=== PATIENT | male | born 1960 | race Caucasian/White ===

== ENCOUNTER 2017-08-09 16:05 | Inpatient (IN) | payer SELFPAY ==
[~2017-08-09] VITALS: Ht 177.8 cm; Wt 85.8 kg
[2017-08-09 16:12] VITALS: BP 205/101
--- NOTE | 2017-08-09 16:23 | NUR ---
PT AMBULATED TO BED 3
--- NOTE | 2017-08-09 16:25 | NUR ---
56/M BIB FAMILY C/O EPIGASTRIC PAIN X 3-4 DAYS WITH DIARRHEA. PT PALE, SLIGHTLY DIAPHORETIC. VERBALIZES HE HAD CHEST PAIN EARLIER TODAY WHILE AT WORK. PT DENIES ANY DRUG USE. [place] PUPILS-DROWSY. PER " HE HASNT BEEN ACTING RIGHT TODAY. PT SPEAKING FULL CLEAR SENTENCES, AAOX4.
[2017-08-09] MEDS ORDERED: NACL 0.9% 1,000 ML IV ONE ×2 (16:30→17:50)
[2017-08-09] MEDS ORDERED: NITROGLYCERIN 0.4 MG TAB SL ONE (16:30)
[2017-08-09] MEDS ORDERED: ASPIRIN 325 MG TAB PO ONE (16:30)
[2017-08-09 16:55] LABS: HEMATOCRIT 46.3 % (36-52); HEMOGLOBIN 15.4 g/dL (12.0-18.0); MEAN CORPUSCULAR HEMOGLOBIN 30 pg (27-31); MEAN CORPUSCULAR HGB CONC 33 g/dL (33-37); MEAN CORPUSCULAR VOLUME 91 fL (80-94); PLATELET COUNT (AUTO) 341 K/uL (140-450); RED BLOOD CELL COUNT(AUTO) 5.08 MIL/uL (4.20-6.10); RED CELL DISTRIBUTION WIDTH 13.2 % (11.6-13.7); WHITE BLOOD COUNT (AUTO) 20.4 K/uL (4.8-10.8)
[2017-08-09 17:25] LABS: LYMPHOCYTES % (MANUAL) 12 % (20-46); MONOCYTES % (MANUAL) 4 % (5-12)
[2017-08-09 17:34] LABS: ANION GAP 15.9 (8-16); CARBON DIOXIDE 26.7 mmol/L (21-32); CREATININE 1.1 mg/dL (0.7-1.3); POTASSIUM 3.6 mmol/L (3.5-5.1)
[2017-08-09 17:41] LABS: ALBUMIN 4.3 g/dL (3.4-5.0); TOTAL BILIRUBIN 0.4 mg/dL (0.0-1.0)
[2017-08-09] MEDS ORDERED: LEVOFLOXACIN 750 MG/D5W PREMIX 150 ML IV ONE (17:50)
[2017-08-09 17:54] LABS: APPEARANCE,URINE CLEAR (CLEAR); BILIRUBIN,URINE NEGATIVE (NEGATIVE); BLOOD, URINE TRACE-I (NEGATIVE); COLOR,URINE YELLOW (YELLOW); LEUKOCYTE ESTERASE ,URINE NEGATIVE (NEGATIVE); NITRITE, URINE NEGATIVE (NEGATIVE); PH,URINE 5.5 (5.0-9.0); UGLUCOSE NEGATIVE (NEGATIVE)
[2017-08-09 18:01] LABS: BARBITURATE, URINE NEG. ng/ml (NEG <=200); BENZODIAZEPINE, URINE NEG. ng/mL (NEG <=200); CANNABINOID, URINE NEG. ng/mL (NEG <=50); COCAINE, URINE NEG. ng/mL (NEG <=300); OPIATE, URINE POS. ng/mL (NEG <=2000); PHENCYCLIDINE SCREEN,URINE NEG. ng/mL (NEG <=25)
[2017-08-09 18:08] LABS: RBC,URINE 3-10 (FEW) /HPF (0-5); WBC,URINE 0-5 (RARE) /HPF (0-5)
--- NOTE | 2017-08-09 18:51 | NUR ---
Patient appears to be resting comfortably in bed. BP 150/90,Respirations even and unlabored.WILL CONTINUE TO MONITOR.
--- NOTE | 2017-08-09 19:14 | NUR ---
Pt report given to NASIR BAXTER. Transfer of care at this time.
--- NOTE | 2017-08-09 19:27 | NUR ---
PT RESTING IN BED, ON MONITOR, VSS. AWATING FOR ROOM TO BE [facility]NFER. [facility]
[2017-08-09] MEDS ORDERED: ACETAMINOPHEN 325 MG TAB PO PRN (19:40)
[2017-08-09] MEDS ORDERED: PROCHLORPERAZINE 10 MG/2 ML VIAL IVP PRN (19:40)
[2017-08-09] MEDS ORDERED: MORPHINE SULFATE 2 MG/ML SYR IVP PRN (19:40)
[2017-08-09] MEDS ORDERED: KETOROLAC 30 MG/ML VIAL IVP PRN (19:40)
--- NOTE | 2017-08-09 20:30 | NUR ---
PT ARRIVED VIA GURNEY. RECEIVED REPORT FROM DIRECTOR COMMUNICATIONS, PT IS A/OX4, ON ROOM AIR. 20G IV TO LEFT AC, AND 20G IV TO RIGHT AC. PT AMBULATES WITH STEADY GAIT, SKIN IS INTACT. UPDATED BOARD. OBTAINED MRSA NARES SWAB AND SENT TO LAB. DISCUSSED PLAN OF CARE WITH PT, PT VERBALIZED UNDERSTANDING. VITAL SIGNS WITHIN NORMAL LIMITS. PT IN STABLE CONDITION, NO SIGNS OF DISTRESS NOTED. BED IN LOWEST POSITION, CALL LIGHT WITHIN REACH. WILL CONTINUE TO MONITOR.
--- NOTE | 2017-08-09 20:30 | NUR ---
Patient will be admitted to care of DR TAYLOR. Admited to TELEMETRY, ROOM 111A. Belongings list completed. Report to NASIR PELLETIER AT BEDSIDE.
[2017-08-09 20:50] LABS: CHOL/HDL RATIO 5.2 (1-4.5); MAGNESIUM 2.1 mg/dL (1.8-2.4); PHOSPHORUS 4.7 mg/dL (2.5-4.9); THYROID STIMULATING HORMONE 0.72 uIU/mL (0.34-3.74)
[2017-08-09] MEDS ORDERED: DOCUSATE SODIUM 100 MG GELCAP PO PRN (21:00)
[2017-08-09] MEDS ORDERED: ECOTRIN 81 MG TABEC PO ONE (21:40)
[2017-08-09] MEDS ORDERED: INSULIN LISPRO SLIDING SCALE 100 UNITS/ML VIAL SUBQ PRN (21:50)
[2017-08-09] MEDS ORDERED: DEXTROSE 50% 50 ML SYR IVP PRN (21:50)
[2017-08-09] MEDS: metroNIDAZOLE 500 MG/NS PREMIX 100 ML IV SCH (22:20)
[2017-08-09] MEDS: NACL 0.9% 1,000 ML IV SCH (22:20)
--- NOTE | 2017-08-09 22:20 | NUR ---
ADMINISTERED SCHEDULED MEDICATIONS, PT TOLERATED WELL. PT IN STABLE CONDITION, NO SIGNS OF DISTRESS NOTED. BED IN LOWEST POSITION, CALL LIGHT WITHIN REACH. WILL CONTINUE TO MONITOR.
[2017-08-09 22:30] VITALS: BP 147/90
[2017-08-09] MEDS: HYDROcodone/APAP 7.5/325 MG 1 TAB PO PRN (23:28)
--- NOTE | 2017-08-09 23:30 | NUR ---
PT C/O 11/06 ABDOMINAL PAIN, MEDICATED ACCORDING TO MD ORDER WITH NORCO, PT TOLERATED WELL. WILL REASSESS FOR EFFECTIVENESS OF PAIN MEDICATION. PT IN STABLE CONDITION, NO SIGNS OF DISTRESS NOTED. BED IN LOWEST POSITION, CALL LIGHT WITHIN REACH. WILL CONTINUE TO MONITOR.
--- NOTE | 2017-08-10 | NUR ---
VITAL SIGNS WITHIN NORMAL LIMITS. PT IN STABLE CONDITION, NO SIGNS OF DISTRESS NOTED. BED IN LOWEST POSITION, CALL LIGHT WITHIN REACH. WILL CONTINUE TO MONITOR.
[2017-08-10 01:10] VITALS: BP 106/55
[2017-08-10] MEDS ORDERED: INFLUENZA VIRUS VACCINE QUAD 0.5 ML SYR IMVAC PRN (03:55)
[2017-08-10] MEDS: NACL 0.9% 1,000 ML IV SCH ×2 (03:56→13:01)
[2017-08-10 04:00] VITALS: BP 111/57
--- NOTE | 2017-08-10 04:00 | NUR ---
VITAL SIGNS WITHIN NORMAL LIMITS. PT IN STABLE CONDITION, NO SIGNS OF DISTRESS NOTED. BED IN LOWEST POSITION, CALL LIGHT WITHIN REACH. WILL CONTINUE TO MONITOR.
[2017-08-10] MEDS: metroNIDAZOLE 500 MG/NS PREMIX 100 ML IV SCH ×3 (05:18→20:44)
--- NOTE | 2017-08-10 07:20 | NUR ---
ASSUMED CONTINUITY OF CARE. NO SIGNS AND SYMPTOMS OF ACUTE DISTRESS NOTED. INITIAL ASSESSMENT DONE. KEEP COMFORTABLE ON BED. EXPLAINED DIAGNOSIS, PLAN OF CARE, PAIN MANAGEMENT TEACHING, USE OF CALL LIGHT/BED/TV/BATHROOM. VERBALIZED UNDERSTANDING. CALL LIGHT WITHIN REACH.
--- NOTE | 2017-08-10 07:24 | NUR ---
ENDORSED PT IN STABLE CONDITION TO DAY SHIFT NURSE FOR CONTINUITY OF CARE.
[2017-08-10] MEDS ORDERED: BLOOD GLUCOSE MONITORING 1 DEV DEV FS SCH (07:30)
[2017-08-10 08:00] VITALS: BP 130/65
[2017-08-10] MEDS ORDERED: metFORMIN 500 MG TAB PO SCH (08:00)
--- NOTE | 2017-08-10 08:00 | NUR ---
Patient's Plan of Care was discussed and reviewed with ROUTING EQUIPMENT TENDER: GRETTA GONGORA LVN
[2017-08-10] MEDS: LACTOBACILLUS RHAMNOSUS GG 1 EACH CAP PO SCH (08:29)
[2017-08-10] MEDS: ATORVASTATIN 20 MG TAB PO SCH (08:29)
[2017-08-10] MEDS: LISINOPRIL 5 MG TAB PO SCH (08:29)
[2017-08-10] MEDS: METOPROLOL 25 MG TAB PO SCH (08:30)
[2017-08-10] MEDS ORDERED: ASPIRIN 81 MG TAB.CHEW PO SCH (09:00)
[2017-08-10] MEDS: HYDROcodone/APAP 7.5/325 MG 1 TAB PO PRN ×3 (09:15→19:51)
--- NOTE | 2017-08-10 09:25 | NUR ---
COLLECTED STOOL SPECIMEN AND SEND TO LAB.
[2017-08-10 09:42] LABS: BASOPHILS # (AUTO) 0.2 K/uL (0.00-0.22); BASOPHILS % (AUTO) 1.9 % (0.0-2.0); EOSINOPHILS # (AUTO) 0.1 K/uL (0-0.4); EOSINOPHILS % (AUTO) 0.8 % (0.0-4.0); HEMATOCRIT 40.1 % (36-52); HEMOGLOBIN 13.3 g/dL (12.0-18.0); LYMPHOCYTES # (AUTO) 1.1 K/uL (2.0-11.5); LYMPHOCYTES % (AUTO) 11.7 % (20.5-51.1); MEAN CORPUSCULAR HEMOGLOBIN 31 pg (27-31); MEAN CORPUSCULAR HGB CONC 33 g/dL (33-37); MEAN CORPUSCULAR VOLUME 92 fL (80-94); MONOCYTES % (AUTO) 10.6 % (1.7-9.3); NEUTROPHILS # (AUTO) 6.9 K/uL (1.8-7.7); PLATELET COUNT (AUTO) 248 K/uL (140-450); RED BLOOD CELL COUNT(AUTO) 4.36 MIL/uL (4.20-6.10); WHITE BLOOD COUNT (AUTO) 9.3 K/uL (4.8-10.8)
[2017-08-10 09:49] LABS: ANION GAP 11.4 (8-16); CARBON DIOXIDE 28.3 mmol/L (21-32); CREATININE 0.7 mg/dL (0.7-1.3); POTASSIUM 3.7 mmol/L (3.5-5.1)
--- NOTE | 2017-08-10 11:20 | NUR ---
DR. ONOFRE CAME, REVIEWED PT. CHART AND SPOKE TO PT. AT BEDSIDE.
[2017-08-10 12:00] VITALS: BP 106/60
[2017-08-10] MEDS ORDERED: LACTULOSE 20 GM/30 ML UDC PO SCH (12:11)
[2017-08-10] MEDS: SENNA 8.6 MG TAB PO SCH ×2 (13:10→16:30)
--- NOTE | 2017-08-10 15:20 | NUR ---
WATCHING TV AT THIS TIME. NO DISCOMFORT NOTED. CALL LIGHT WITHIN REACH.
--- NOTE | 2017-08-10 15:26 | NUR ---
PATIENT HAS BEEN SCREENED AND CATEGORIZED HIGH NUTRITION RISK. PATIENT WILL BE SEEN WITHIN 1-2 DAYS OF ADMISSION. 08/10/17 - 08/11/[address]
[2017-08-10 16:00] VITALS: BP 123/67
[2017-08-10] MEDS: METOCLOPRAMIDE 10 MG TAB PO SCH (16:29)
[2017-08-10] MEDS ORDERED: LEVOFLOXACIN 750 MG/D5W PREMIX 150 ML IV SCH (18:00)
--- NOTE | 2017-08-10 19:10 | NUR ---
BEDSIDE REPORT GIVEN TO IGOR WHIPPLE -NASIR. IVF INFUSING WELL. IN STABLE CONDITION.
--- NOTE | 2017-08-10 19:15 | NUR ---
RECEIVED PT AWAKE ON BED, COMPLAINING OF ABDOMINAL PAIN, WILL MEDICATE PRN, VITAL SIGNS STABLE, SB ON TELE, DENIES CHEST PAIN, NO SOB NOTED, TOLERATING CLEAR LIQUID DIET, INSTRUCTED NPO AFTER MIDNIGHT FOR EGD TOMORROW, VERBALIZED UNDERSTANDING, SAFETY MEASURES IN PLACE, CALL LIGHT WITHIN REACH.
[2017-08-10 20:00] VITALS: BP 128/71
[2017-08-10] MEDS: PANTOPRAZOLE 40 MG INJ VIAL IVP SCH (20:45)
--- NOTE | 2017-08-10 20:45 | NUR ---
DUE MEDS ADMINISTERED WITH EDUCATION PROVIDED, PT VERBALIZED PAIN RELIEF FROM NORCO, ALL NEEDS ATTENDED.
--- NOTE | 2017-08-10 22:40 | NUR ---
PT AMBULATED TO BR WITH STEADY GAIT, BM WITH SMALL AMOUNT OF SOFT STOOL, DENIES ANY PAIN, MONITORED CLOSELY.
[2017-08-11] VITALS (8 sets, daily range): BP systolic 97–134; BP diastolic 48–82
--- NOTE | 2017-08-11 | NUR ---
PT SLEEPING, EASILY AROUSABLE, VITAL SIGNS STABLE, SB ON TELE, ASYMPTOMATIC, DENIES CHEST PAIN, NO SOB NOTED, ON NPO AFTER MIDNIGHT, IVF INFUSING WELL, CONTINUE TO MONITOR CLOSELY.
[2017-08-11] MEDS: NACL 0.9% 1,000 ML IV SCH (03:00)
--- NOTE | 2017-08-11 04:00 | NUR ---
PT SLEEPING, EASILY AROUSABLE, VITAL SIGNS STABLE, SB ON TELE FROM 49-56 BPM, NO DISTRESS NOTED, MONITORED CLOSELY.
[2017-08-11] MEDS: metroNIDAZOLE 500 MG/NS PREMIX 100 ML IV SCH ×2 (04:41→12:21)
--- NOTE | 2017-08-11 06:30 | NUR ---
PT SLEEPING, NO SIGNS OF DISTRESS OR PAIN, MAINTAINED ON NPO FOR EGD TODAY, IVF INFUSING WELL, MONITORED CLOSELY.
[2017-08-11] MEDS: METOCLOPRAMIDE 10 MG TAB PO SCH ×2 (06:32→11:30)
[2017-08-11 07:04] LABS: T4 (THYROXINE) 5.7 ug/dL (4.5-12.0)
--- NOTE | 2017-08-11 07:08 | NUR ---
ASSUMED CONTINUITY OF CARE. NO SIGNS AND SYMPTOMS OF ACUTE DISTRESS NOTED. INITIAL ASSESSMENT DONE. KEEP COMFORTABLE ON BED. EXPLAINED DIAGNOSIS, PLAN OF CARE, PAIN MANAGEMENT TEACHING, PRE-OP CARE, USE OF CALL LIGHT/BED/TV/BATHROOM. VERBALIZED UNDERSTANDING. CALL LIGHT WITHIN REACH.
--- NOTE | 2017-08-11 07:08 | NUR ---
PT SLEEPING, NO SIGNS OF DISTRESS, REPORT GIVEN TO GRETTA FOR CONTINUITY OF CARE.
--- NOTE | 2017-08-11 07:20 | NUR ---
Patient's Plan of Care was discussed and reviewed with GENERAL MANAGER ROAD PRODUCTION: ROLAN.
[2017-08-11 07:25] LABS: BASOPHILS # (AUTO) 0.2 K/uL (0.00-0.22); BASOPHILS % (AUTO) 3.6 % (0.0-2.0); EOSINOPHILS # (AUTO) 0.1 K/uL (0-0.4); EOSINOPHILS % (AUTO) 1.8 % (0.0-4.0); HEMATOCRIT 40.2 % (36-52); HEMOGLOBIN 13.4 g/dL (12.0-18.0); LYMPHOCYTES % (AUTO) 15.4 % (20.5-51.1); MEAN CORPUSCULAR HEMOGLOBIN 31 pg (27-31); MEAN CORPUSCULAR HGB CONC 33 g/dL (33-37); MEAN CORPUSCULAR VOLUME 93 fL (80-94); MONOCYTES # (AUTO) 0.5 K/uL (0.8-1.0); MONOCYTES % (AUTO) 7.7 % (1.7-9.3); NEUTROPHILS # (AUTO) 4.4 K/uL (1.8-7.7); NEUTROPHILS % (AUTO) 71.5 % (42.2-75.2); PLATELET COUNT (AUTO) 254 K/uL (140-450); RED BLOOD CELL COUNT(AUTO) 4.34 MIL/uL (4.20-6.10); RED CELL DISTRIBUTION WIDTH 13.2 % (11.6-13.7); WHITE BLOOD COUNT (AUTO) 6.2 K/uL (4.8-10.8)
[2017-08-11 07:25] LABS: HEPATITIS A ANTIBODY IGM Negative (Negative); HEPATITIS B CORE AB TOTAL Negative (Negative); HEPATITIS B SURFACE ANTIBODY Non Reactive (.); HEPATITIS B SURFACE ANTIGEN Negative (Negative)
[2017-08-11 09:00] LABS: ANION GAP 11.2 (8-16); CARBON DIOXIDE 27.6 mmol/L (21-32); CREATININE 0.8 mg/dL (0.7-1.3); POTASSIUM 3.8 mmol/L (3.5-5.1)
[2017-08-11] MEDS: METOPROLOL 25 MG TAB PO SCH (09:00)
[2017-08-11] MEDS: LACTOBACILLUS RHAMNOSUS GG 1 EACH CAP PO SCH (09:00)
[2017-08-11] MEDS ORDERED: LACTULOSE 20 GM/30 ML UDC PO SCH (09:00)
[2017-08-11] MEDS: ATORVASTATIN 20 MG TAB PO SCH (09:00)
[2017-08-11] MEDS: LISINOPRIL 5 MG TAB PO SCH (09:00)
[2017-08-11] MEDS: SENNA 8.6 MG TAB PO SCH ×2 (09:00→13:00)
[2017-08-11] MEDS: PANTOPRAZOLE 40 MG INJ VIAL IVP SCH ×2 (09:16→20:51)
[2017-08-11] MEDS: HYDROcodone/APAP 7.5/325 MG 1 TAB PO PRN (13:26)
--- NOTE | 2017-08-11 14:11 | NUR ---
08/11/2017 RD INITIAL ASSESSMENT COMPLETED PLEASE REFER TO NUTRITION ASSESSMENT UNDER CARE ACTIVITY FOR ESTIMATED NUTRITIONAL NEEDS. CONTINUE NPO DIET ORDER MEDICALLY NECESSARY. WHEN MEDICALLY FEASIBLE, INITIATE PO INTAKE WITHIN 3-5 DAYS. ADVANCE TO REGULAR DIET TOLERATED. RD TO FOLLOW-UP IN 3-5 DAYS PATIENT IS MODERATE RISK. SHASHI AGUILLON RD
[2017-08-11] MEDS ORDERED: diphenhydrAMINE 50 MG/ML VIAL ONE (14:33)
[2017-08-11] MEDS ORDERED: MIDAZOLAM 2 MG/2 ML VIAL ONE (14:33)
[2017-08-11] MEDS ORDERED: fentaNYL 0.05 MG/ML VIAL ONE (14:33)
--- NOTE | 2017-08-11 15:00 | NUR ---
WENT TO [facility] FOR EGD. IN STABLE CONDITION.
[2017-08-11] MEDS: MIDAZOLAM 2 MG/2 ML VIAL IVP ONE ×2 (16:00→16:44)
[2017-08-11] MEDS: fentaNYL 0.05 MG/ML VIAL IVP ONE ×2 (16:01→16:44)
--- NOTE | 2017-08-11 16:26 | NUR ---
BACK FROM [facility] FOR [facility]. AWAKE, ALERT, AND ORIENTED X4. NO C/O PAIN. NO SOB, NOTED. KEEP COMFORTABLE ON BED. CALL LIGHT WITHIN REACH.
--- NOTE | 2017-08-11 17:45 | NUR ---
AMBULATES ON HALLWAY ACCOMPANIED BY PT. . TOLERATED WELL. NO C/O PAIN.
--- NOTE | 2017-08-11 19:12 | NUR ---
BEDSIDE REPORT GIVEN TO BEATRIZ LOPEZ -NASIR. IN STABLE CONDITION.
--- NOTE | 2017-08-11 19:15 | NUR ---
RECEIVED REPORT FROM AM SHIFT PT IS AWAKE,ALERT ORIENTED X4. PT IS LYING ON TH BED WITH HIS . PT DENIES ANY PAIN AT THIS TIME.LUNG SOUND CLEAR BILATERALLY. SKIN WARM TO TOUCH. NO EDEMA NOTED. SKIN IOS INTACT. IV SALINE LOCK TO RIGHT AC AND LEFT AC NO 20 INTACT WELL. NO S/S OF INFILTRATION NOTED. PT IS CONTINENT BOWEL AND BLADDER. GENTLE CARE GIVEN. KEPT CLEAN AND DRY. CALL LIGHT IN REACH.
--- NOTE | 2017-08-11 21:00 | NUR ---
PT WAS C/O PAIN ABD AREA 5/10. REPOSITION PT FOR COMFORT, TEACH PT RELAXATION TECHNIQUE,PRN MEDS GIVEN ORDER. ALSO NIGHT MED GIVEN ORDER.
--- NOTE | 2017-08-11 22:00 | NUR ---
PT IS SLEEPING NO S/S OF PAIN AT THIS TIME.
[2017-08-12] VITALS: BP 115/64
--- NOTE | 2017-08-12 01:48 | NUR ---
PT SLEEP WELL
[2017-08-12 04:00] VITALS: BP 99/50
--- NOTE | 2017-08-12 04:00 | NUR ---
PT IS SLEEPING WELL.NO S/S OF PAIN OR DISCOMFORT NOTED.
--- NOTE | 2017-08-12 05:52 | NUR ---
AM CARE GIVEN. KEPT CLEAN AND DRY.CALL LIGHT IN REACH.
[2017-08-12 07:08] LABS: BASOPHILS # (AUTO) 0.2 K/uL (0.00-0.22); BASOPHILS % (AUTO) 2.4 % (0.0-2.0); EOSINOPHILS # (AUTO) 0.1 K/uL (0-0.4); EOSINOPHILS % (AUTO) 1.9 % (0.0-4.0); HEMATOCRIT 39.4 % (36-52); HEMOGLOBIN 13.6 g/dL (12.0-18.0); LYMPHOCYTES # (AUTO) 1.4 K/uL (2.0-11.5); LYMPHOCYTES % (AUTO) 20.1 % (20.5-51.1); MEAN CORPUSCULAR HEMOGLOBIN 31 pg (27-31); MEAN CORPUSCULAR HGB CONC 35 g/dL (33-37); MEAN CORPUSCULAR VOLUME 91 fL (80-94); MONOCYTES # (AUTO) 0.6 K/uL (0.8-1.0); MONOCYTES % (AUTO) 8.2 % (1.7-9.3); NEUTROPHILS # (AUTO) 4.7 K/uL (1.8-7.7); NEUTROPHILS % (AUTO) 67.4 % (42.2-75.2); PLATELET COUNT (AUTO) 237 K/uL (140-450); RED BLOOD CELL COUNT(AUTO) 4.34 MIL/uL (4.20-6.10); RED CELL DISTRIBUTION WIDTH 13.1 % (11.6-13.7)
--- NOTE | 2017-08-12 07:15 | NUR ---
REPORT GIVEN TO JANETT CABEZAS RN AM SHIFT. PT IS AWAKE, NO S/S OF RESP DISTRESS, NO SOB AT THIS TIME.
--- NOTE | 2017-08-12 07:16 | NUR ---
REPORT GIVEN TO SANTIAGO LIZ RN. PT IS STABLE. PT STILL SLEEPING AT THIS TIME.
[2017-08-12 07:22] LABS: PHOSPHORUS 3.3 mg/dL (2.5-4.9)
[2017-08-12 07:24] LABS: ANION GAP 10.4 (8-16); CARBON DIOXIDE 27.2 mmol/L (21-32); CREATININE 0.9 mg/dL (0.7-1.3); POTASSIUM 3.6 mmol/L (3.5-5.1)
--- NOTE | 2017-08-12 07:30 | NUR ---
RECEIVED PT AAOX4. NO SOB NOTED. NO C/O PAIN AT THIS TIME. IV TO RT AND LT AC PATENT AND INTACT. CHEST CLEAR. ABDOMEN SOFT, BOWEL SOUNDS PRESENT. NO EDEMA NOTED. INSTRUCTED PT TO CALL FOR ASSISTANCE, CALL LIGHT WITHIN REACH, PT VERBALIZED UNDERSTANDING.
[2017-08-12 08:00] VITALS: BP 130/55
[2017-08-12] MEDS: METOPROLOL 25 MG TAB PO SCH (09:00)
[2017-08-12] MEDS: LISINOPRIL 5 MG TAB PO SCH (09:55)
[2017-08-12] MEDS: ATORVASTATIN 20 MG TAB PO SCH (09:55)
[2017-08-12] MEDS: LACTOBACILLUS RHAMNOSUS GG 1 EACH CAP PO SCH (09:56)
[2017-08-12] MEDS: PANTOPRAZOLE 40 MG INJ VIAL IVP SCH (09:56)
--- NOTE | 2017-08-12 10:00 | NUR ---
PT TOOK SHOWER, ACTIVITY TOLERATED WELL. NO COMPLAINTS MADE.
[2017-08-12] MEDS ORDERED: OMEP20EC6 PO (11:59)
[2017-08-12] MEDS ORDERED: LACT10SO1 PO (12:00)
--- NOTE | 2017-08-12 12:15 | NUR ---
DISCHARGE INSTRUCTIONS AND PRESCRIPTIONS GIVEN TO PT WHICH VERBALIZED FULL UNDERSTANDING OF THE TEACHINGS GIVEN AND THE NEED TO FOLLOW UP WITH [facility] AT A GIVEN SCHEDULED DATE AND TIME. ARM BANDS AND IV REMOVED, CANNULA TIP INTACT.
--- NOTE | 2017-08-12 12:30 | NUR ---
ESCORTED PT OUT TO THE FRONT LOBBY AMBULATORY AND IN STABLE CONDITION. NO COMPLAINTS MADE. PT IS D/C HOME WITH .
== END 2017-08-12 12:30 | disposition home or self-care (01) | DRG 871 ==
LOC: MED 16:19 → MTU 19:36
PROVIDERS: ADMIT Family Medicine Sports Medicine; ATTEND Family Medicine Sports Medicine
PROC: 0DB68ZX Excision of Stomach, Via Natural or Artificial Opening Endoscopic, Diagnostic (ICD-10-PCS; 2017-08-11)
PROC: 3E0234Z Introduction of Serum, Toxoid and Vaccine into Muscle, Percutaneous Approach (ICD-10-PCS; 2017-08-11)
PROC: 0DB38ZX Excision of Lower Esophagus, Via Natural or Artificial Opening Endoscopic, Diagnostic (ICD-10-PCS; principal; 2017-08-11 15:15)
DX: A41.9 Sepsis, unspecified organism (principal); N17.0 Acute kidney failure with tubular necrosis; K22.10 Ulcer of esophagus without bleeding; Q44.6 Cystic disease of liver; K72.90 Hepatic failure, unspecified without coma; E78.5 Hyperlipidemia, unspecified; K21.9 Gastro-esophageal reflux disease without esophagitis; Z86.11 Personal history of tuberculosis; F11.90 Opioid use, unspecified, uncomplicated; Z86.19 Personal history of other infectious and parasitic diseases; I10 Essential (primary) hypertension; D41.4 Neoplasm of uncertain behavior of bladder; K52.9 Noninfective gastroenteritis and colitis, unspecified; M94.0 Chondrocostal junction syndrome [Tietze]; E11.65 Type 2 diabetes mellitus with hyperglycemia; Z23 Encounter for immunization
CPT/HCPCS: 36415; 71045; 76705; 80048; 80053; 80305; 81001; 82140; 82150; 82948; 83036; 83605; 83690; 83735; 83880; 84100; 84436; 84443; 84479; 84484; 85025; 85610; 85730; 86677; 86704; 86706; 86708; 86709; 86803; 87040; 87045; 87081; 87177; 87340; 87804; 89055; 90658; 93005; 93925; 93970; 96361; 96365; 99285; C9113; J1200; J1956; J2250; J3010; J3490; J7030; J8597; Q0092